=== PATIENT | male | born 1985 | race Caucasian/White ===

== ENCOUNTER 2017-03-20 21:13 | Emergency (ER) | payer OTHER, MEDICAID ==
[~2017-03-20] VITALS: Ht 152.4 cm; Wt 45.4 kg
[~2017-03-20 21:13] MED LIST: AMOX-520 PO; GUAI5SYR PO; METH20CP PO; METH40CP PO; SEVE400T PO
[2017-03-20 21:23] VITALS: BP_SYST 152
[2017-03-20 23:25] VITALS: BP_SYST 142
== END 2017-03-20 23:25 | disposition home or self-care (01) ==
LOC: SED 21:13
DX: S92.491A Other fracture of right great toe, initial encounter for closed fracture (principal); Z88.6 Allergy status to analgesic agent; Z79.2 Long term (current) use of antibiotics; Z79.899 Other long term (current) drug therapy; Z94.0 Kidney transplant status; W22.09XA Striking against other stationary object, initial encounter; Y93.89 Activity, other specified; Y92.89 Other specified places as the place of occurrence of the external cause; Y99.8 Other external cause status
CPT/HCPCS: 99284

== ENCOUNTER 2020-06-08 11:41 | Emergency (ER) | payer OTHER, MEDICAID ==
[~2020-06-08] VITALS: Ht 154.9 cm; Wt 43.1 kg
[2020-06-08 11:56] VITALS: BP_SYST 129
--- NOTE | 2020-06-08 12:55 | NUR ---
RECEIVED AND IN ROOM, ROSS TO ASSUME CARE
--- NOTE | 2020-06-08 12:58 | NUR ---
ALERT, CALM, RESP UNLABORED, SKIN WARM AND DRY. COMMUNICATES CLEARLY. NO DISTRESS C/O RT EAR DISTURBANCE. STATED HIS HEARING IS BETTER AND THAT SYMPTOMS HAVE RESOLVED
--- NOTE | 2020-06-08 12:58 | NUR ---
DR MÁRQUEZ IN TO ASSESS
[2020-06-08 13:29] VITALS: BP_SYST 125
--- NOTE | 2020-06-08 13:31 | NUR ---
Patient given written and verbal discharge instructions and verbalizes understanding. ER MD discussed with patient the results and treatment provided. Patient in stable condition. ID arm band removed. Patient educated on pain management and to follow up with PMD. Pain Scale 0 Opportunity for questions provided and answered. Medication side effect fact sheet provided.
== END 2020-06-08 13:31 | disposition home or self-care (01) ==
LOC: SED 11:41
DX: Z01.10 Encounter for examination of ears and hearing without abnormal findings (principal)
CPT/HCPCS: 99281

== ENCOUNTER 2022-08-24 08:16 | Inpatient (IN) | payer OTHER, MEDICAID ==
[~2022-08-24] VITALS: Ht 152.4 cm; Wt 44.9 kg
[2022-08-24 08:24] VITALS: BP_SYST 170
--- NOTE | 2022-08-24 08:30 | NUR ---
Patient to ER bed h2 to gown for evaluation. Side rails up. Report given to Sonja ARCE.
--- NOTE | 2022-08-24 08:31 | NUR ---
Pt came in from home c/o SOB after consuming too many sodas. Pt states he has h/o ESRD, curently receives Dialysis 4x per week. Pt has R fistula. hx of heart sx, facial sx and kidney sx. Denies f/v/d. Pt is anuric. Pt is calm and cooperative, in no acute distress at this time. Care to be provided as ordered.
--- NOTE | 2022-08-24 08:32 | NUR ---
ED MD Dr. Spivey at bedside examining patient.
[2022-08-24] MEDS ORDERED: IPRATROPIUM/ALBUTEROL SULFATE 3 ML AMPUL.NEB (DUONEB) INH ONE (08:45)
[2022-08-24 09:48] LABS: ANION GAP 8 (5-15); CALCIUM 9.7 mg/dL (8.4-11.0); CHLORIDE 101 mmol/L (98-107); GLUCOSE 83 mg/dL (70-99); UREA NITROGEN, BLOOD 45 mg/dL (8-21)
[2022-08-24 09:56] LABS: ALANINE AMINOTRANSFERASE 22 U/L (12-78); ALBUMIN 3.8 g/dL (3.4-4.8); ASPARTATE AMINOTRANSFERASE 22 U/L (10-37); LIPASE 159 U/L (73-393); TOTAL BILIRUBIN 0.7 mg/dL (0.0-1.0)
[2022-08-24 09:57] LABS: CREATININE 8.49 mg/dL (0.55-1.30); GFR AFRICAN AMERICAN 9 mL/min (>90)
[2022-08-24] MEDS ORDERED: INSULIN REGULAR, HUMAN 100 UNITS/ML, 3 ML VIAL IVP ONE (10:15)
[2022-08-24] MEDS ORDERED: DEXTROSE 50% JECT 50 ML DISP.SYRIN IVP ONE (10:15)
[2022-08-24] MEDS ORDERED: CALCIUM GLUCONATE 2 GM in NS 100 ML IV ONE (10:15)
[2022-08-24] MEDS ORDERED: ASPIRIN 325 MG TABLET PO ONE (10:15)
[2022-08-24 10:42] LABS: BASOPHILS # (AUTO) 0.1 K/uL (0.0-0.2); BASOPHILS % (AUTO) 1.1 % (0.0-2.0); EOSINOPHILS # (AUTO) 0.5 K/uL (0.0-0.4); EOSINOPHILS % (AUTO) 6.4 % (0.0-4.0); HEMATOCRIT 32.7 % (36-54); HEMOGLOBIN 10.8 g/dL (14.0-18.0); LYMPHOCYTES # (AUTO) 0.9 K/uL (1.0-5.5); LYMPHOCYTES % (AUTO) 10.7 % (20.5-51.5); MEAN CORPUSCULAR HEMOGLOBIN 30 pg (27-31); MEAN CORPUSCULAR HGB CONC 33 % (32-36); MEAN CORPUSCULAR VOLUME 91 fL (79.0-98.0); MONOCYTES # (AUTO) 0.5 K/uL (0.0-1.0); MONOCYTES % (AUTO) 5.4 % (1.7-9.3); NEUTROPHILS # (AUTO) 6.4 K/uL (1.8-7.7); NEUTROPHILS % (AUTO) 76.4 % (40.0-70.0); PLATELET COUNT (AUTO) 157 K/uL (130-430); WHITE BLOOD COUNT (AUTO) 8.4 K/uL (4.8-10.8)
[2022-08-24] MEDS ORDERED: CALCIUM GLUCONATE 1 GM/10 ML VIAL ONE (10:54)
[2022-08-24] MEDS ORDERED: INSULIN REGULAR, HUMAN 10 UNITS/0.1 ML, 3 ML VIAL ONE (10:55)
--- NOTE | 2022-08-24 12:10 | NUR ---
Admit bed requested Patient will be admitted to care of Dr. NAIDU. Admitted to TELE unit. Diagnosis ESRD, HYPERKALEMIA, ELEV TROP Inpatient (Yes or No) YES Observation (Yes or No) NO Orientation concerns or request close to nursing station (Yes or No) NO Covid Status PENDING On vent or bipap NO Isolation requirements NO Needs a sitter NO From Home (Yes or if No enter name of facility) YES Requires Dialysis (Yes or No) YES Med Rec Completed (Yes of No) YES
[2022-08-24 12:39] LABS: CHOLESTEROL 176 mg/dL (<200); HDL CHOLESTEROL 72 mg/dL (>45); LDL CHOLESTEROL 96 mg/dL (<100); TRIGLYCERIDES 44 mg/dL (30-150)
[2022-08-24] MEDS ORDERED: CALC667C4 PO (13:54)
[2022-08-24] MEDS ORDERED: METO10TA3 PO (13:54)
[2022-08-24] MEDS ORDERED: SEVE800T8 PO (13:54)
[2022-08-24] MEDS ORDERED: TRAZ-250 PO (13:54)
[2022-08-24] MEDS ORDERED: METO-542 PO (13:54)
[2022-08-24] MEDS ORDERED: PARO10TA75 PO (13:54)
[2022-08-24] MEDS ORDERED: HYDR-4038 PO (13:54)
[2022-08-24] MEDS ORDERED: AMLO10TA88 PO (13:54)
[2022-08-24] MEDS ORDERED: CEPH-548 PO (13:54)
--- NOTE | 2022-08-24 15:55 | NUR ---
ADMISSION NOTE Received patient from ER via gurney. Patient admitted with diagnosis of renal dysplasia. Patient is awake, alert, oriented X4. Denies pain, discomfort, or SOB. Patient oriented to hospital room, call light, toileting, pain management and safety-teach back done. Patient informed that Griffin and Therese will be his nurses and that their room number is 103-A. Personal belongings checked and Belongings List documented. Call light within reach. Safety precautions observed.
--- NOTE | 2022-08-24 16:28 | NUR ---
CONSULT PAGED DR CTA FOR CONSULT DX INCREASE TROPONIN SPOKE WITH WILSON
[2022-08-24] MEDS ORDERED: DOCUSATE SODIUM 100 MG CAPSULE PO ONE (17:00)
--- NOTE | 2022-08-24 17:30 | NUR ---
DIALYSIS START Hemodialysis at bedside. Dialysis nurse at bedside at this time.
--- NOTE | 2022-08-24 18:27 | NUR ---
CLOSING NOTE Patient in bed at this time. Alert, oriented, awake. He denies pain or discomfort at this time. Dialysis ongoing. organ grinder at bedside. Call light within reach. Safety precautions observed.
[2022-08-24 19:00] VITALS: BP_SYST 150
--- NOTE | 2022-08-24 19:15 | NUR ---
change of shift.pt.presents new admission.pt.presents hx;esrd w h/d.h/d therapy session in progress.h/d access location; rt.svc perma-cath.no c/o pain/nausea.pt.capable to reposition self/ambulate un-assisted.call light/telephone w/in access of the pt.
--- NOTE | 2022-08-24 19:21 | NUR ---
Added Notes: Hemodialysis still on going. Patient stable. Patient stated that he will eat his dinner after HD.
[2022-08-24 20:00] VITALS: BP_SYST 150
[2022-08-24] MEDS ORDERED: HEPARIN SODIUM, PORCINE 10,000 UNITS/ 10 ML VIAL MC ONE ×2 (20:00)
--- NOTE | 2022-08-24 20:00 | NUR ---
pt.assessed.hemo-dialysis therapy session in progress.v/s assessed values wnl.no c/o pain,nausea.pt.presents no distress. general status stable.respiratory status stable;un-labored.call light/telephone w/in access of the pt.
--- NOTE | 2022-08-24 20:30 | NUR ---
hemo-dialysis therapy session completed.pt.presents no distress.v/s values wnl.3litres exchanged.
--- NOTE | 2022-08-24 21:00 | NUR ---
2100p medication administered;colace.pt.capable to ingest the po medication w/out difficulty.pt.requested snack; trinity payne provided.call light/telephone w/in access of the pt.
[2022-08-24] MEDS: DOCUSATE SODIUM 100 MG CAPSULE PO SCH (21:10)
--- NOTE | 2022-08-24 22:00 | NUR ---
pt.assessed.pt.quiescent;somnolent.per flacc pain mgx pt.absent facial grimaces/body posturing.pt.capable to reposition self.call light/telephone w/in access of the pt.
[2022-08-25] VITALS: BP_SYST 148
--- NOTE | 2022-08-25 | NUR ---
pt.assessed.v/s assessed values note b/p status.no c/o pain,nausea.no requests posited@this hour.call light/telephone w/in access of the pt.
--- NOTE | 2022-08-25 02:00 | NUR ---
pt.assesed.quiescent.per flacc pain mgx pt.absent facial grimaces/body posturing.pt.capable to reposition self.call light/ telephone w/in access of the pt.
--- NOTE | 2022-08-25 04:00 | NUR ---
pt.assessed.pt.quiescent.per flacc pain mgx pt.absent facial grimaces/body posturing.pt.capable to reposition self. call light/telephone w/in access of the pt.
[2022-08-25] MEDS: NORMAL SALINE 5 ML DISP.SYRIN IVF SCH ×3 (05:25→21:16)
--- NOTE | 2022-08-25 05:27 | NUR ---
CONSULTATION PAGED/CALLED Reason for Consultation: RENAL FAILURE Person Who was Notified: PHYLLIS Consulting Physician: DR.BHASIN PENDLETON FOR [facility] Event Lighting Specialist Specialty: NEPHRO Ordering Physician: EVANGELISTA
--- NOTE | 2022-08-25 06:25 | NUR ---
pt.assessed.no c/o pain,nausea.pt.requested crackers;trinity provided.i have collected the mrsa swab;hemo-dialysis protocol.call light/telephone w/in access of the pt.
[2022-08-25] MEDS: DOCUSATE SODIUM 100 MG CAPSULE PO SCH ×2 (09:15→21:00)
[2022-08-25 11:03] LABS: BASOPHILS # (AUTO) 0.1 K/uL (0.0-0.2); BASOPHILS % (AUTO) 1.8 % (0.0-2.0); EOSINOPHILS # (AUTO) 0.4 K/uL (0.0-0.4); HEMATOCRIT 33.2 % (36-54); HEMOGLOBIN 11.2 g/dL (14.0-18.0); LYMPHOCYTES # (AUTO) 0.9 K/uL (1.0-5.5); LYMPHOCYTES % (AUTO) 13.1 % (20.5-51.5); MEAN CORPUSCULAR HEMOGLOBIN 30 pg (27-31); MEAN CORPUSCULAR HGB CONC 34 % (32-36); MEAN CORPUSCULAR VOLUME 89 fL (79.0-98.0); MONOCYTES # (AUTO) 0.6 K/uL (0.0-1.0); MONOCYTES % (AUTO) 8.3 % (1.7-9.3); NEUTROPHILS # (AUTO) 4.7 K/uL (1.8-7.7); NEUTROPHILS % (AUTO) 70.8 % (40.0-70.0); PLATELET COUNT (AUTO) 163 K/uL (130-430); RED BLOOD CELL COUNT(AUTO) 3.71 MIL/uL (4.2-6.2); RED CELL DISTRIBUTION WIDTH 14.8 % (9.0-15.0); WHITE BLOOD COUNT (AUTO) 6.7 K/uL (4.8-10.8)
[2022-08-25 11:25] VITALS: BP_SYST 151
[2022-08-25 11:29] LABS: ALBUMIN 3.7 g/dL (3.4-4.8); CALCIUM 8.9 mg/dL (8.4-11.0); CREATININE 7.24 mg/dL (0.55-1.30); TOTAL BILIRUBIN 0.8 mg/dL (0.0-1.0)
[2022-08-25 15:28] VITALS: BP_SYST 147
[2022-08-25 20:00] VITALS: BP_SYST 149
--- NOTE | 2022-08-25 23:42 | NUR ---
2000 OPENING NOTES: Patient received in bed AA&Ox4 able to make needs known, denies any pain or distress, Chest rise is even and unlabored, Patient assessed at this time and is stable at this time, safety measures are in place as per protocol, will resume care and continue to monitor throughout the shift. 2200 Patient received evening medications as indicated no s/s of distress, able to communicate needs, call light within reach. 2330 Patient is resting no s/s of distress is noted at this time. Will continue to monitor.
[2022-08-26 01:15] VITALS: BP_SYST 158
[2022-08-26] MEDS: NORMAL SALINE 5 ML DISP.SYRIN IVF SCH ×2 (06:26→14:32)
--- NOTE | 2022-08-26 06:46 | NUR ---
CLOSING NOTES: Patient is in bed resting no s/s of distress is noted at this time. Chest rise is even and unlabored on RA. Patient is able to verbalize needs and has call light within reach. New PIV was started on RFA 22G patent, flushes and is C/D/I. Patient is stable at this time, all current shift needs have been met and safety measures remain in place as per protocol. Will differ care to AM shift nurse for continuity of care.
--- NOTE | 2022-08-26 08:30 | NUR ---
ROUNDS LATE ENTRY DUE TO PATIENT CARE 0830-BLOOD PRESSURE EXTREMELY ELEVATE. DENIES CHST PAIN AT THIS TIME. DR CAT IS ROUNDING AND NOTIFIED HIM OF PT'S BP. PATIENT IS SCHEDULE FOR DIALYSIS TODAY 1030- HEMODIALYSIS STARTED JUST AFTER 10 AM. 1330-HD COMPLETED. DUE MEDICATION FOR HTN GIVEN 1530- BP 148/96
[2022-08-26 08:40] VITALS: BP_SYST 203
[2022-08-26] MEDS: DOCUSATE SODIUM 100 MG CAPSULE PO SCH (09:15)
[2022-08-26] MEDS ORDERED: PARoxetine HCL 20 MG TABLET PO ONE (10:00)
[2022-08-26] MEDS ORDERED: METOPROLOL SUCCINATE 50 MG TAB.SR.24H (TOPROL XL) PO ONE (10:00)
[2022-08-26] MEDS ORDERED: amLODIPine BESYLATE 10 MG TABLET PO ONE (10:00)
[2022-08-26 12:19] VITALS: BP_SYST 155
--- NOTE | 2022-08-26 12:38 | NUR ---
Dietitian Recommendations * Consider Renal standard diet for pt * MD to clarify fluid needs * Consider Nepro ONS once daily to add nutrition GS, MPH, RD Please refer to RD Assessment for further details Addendum: 08/26/22 at [address] Amended: Links added.
[2022-08-26] MEDS ORDERED: HEPARIN SODIUM,PORCINE 5,000 UNITS/ML VIAL MC ONE (12:45)
--- NOTE | 2022-08-26 13:13 | NUR ---
HIGH ALERT NOTE: Called Dr. Nichols identified within the medical roster to verify physician authenticity for one time heparin orders.
[2022-08-26] MEDS ORDERED: LACTULOSE 20 GM/30 ML UDC PO PRN (14:00)
[2022-08-26] MEDS ORDERED: hydrALAZINE HCL 25 MG TABLET PO SCH (14:00)
[2022-08-26 14:16] VITALS: BP_SYST 159
[2022-08-26] MEDS ORDERED: CALCIUM ACETATE 667 MG CAP PO SCH (15:00)
[2022-08-26] MEDS ORDERED: SEVELAMER CARBONATE 800 MG TABLET PO SCH (15:00)
[2022-08-26 15:45] VITALS: BP_SYST 148
[2022-08-26 15:56] VITALS: BP_SYST 148
--- NOTE | 2022-08-26 16:15 | NUR ---
D/C Patient Patient given medication reconciliation form and D/C instructions. Exit Care provided. Patient verbalized understanding. MD discussed with patient the results and treatment provided. Ambulatory with steady gait for discharge to home. Patient in stable condition, ID band removed. IV catheter removed, intact and dressing applied, no active bleeding. Rx of given. Patient educated on pain management. All belongings sent with patient.
[2022-08-26] MEDS ORDERED: traZODone HCL 50 MG TABLET (DESYREL) PO SCH (21:00)
[2022-08-27] MEDS ORDERED: METOPROLOL SUCCINATE 50 MG TAB.SR.24H (TOPROL XL) PO SCH (09:00)
[2022-08-27] MEDS ORDERED: PARoxetine HCL 20 MG TABLET PO SCH (09:00)
[2022-08-27] MEDS ORDERED: amLODIPine BESYLATE 10 MG TABLET PO SCH (09:00)
== END 2022-08-26 16:10 | disposition home or self-care (01) | DRG 640 ==
LOC: SED 08:16 → STU 12:00
PROVIDERS: ADMIT Internal Medicine; ATTEND Internal Medicine
PROC: 5A1D70Z Performance of Urinary Filtration, Intermittent, Less than 6 Hours Per Day (ICD-10-PCS; principal; 2022-08-24)
PROC: 5A1D70Z Performance of Urinary Filtration, Intermittent, Less than 6 Hours Per Day (ICD-10-PCS; 2022-08-26)
DX: E87.5 Hyperkalemia (principal); N18.6 End stage renal disease; I12.0 Hypertensive chronic kidney disease with stage 5 chronic kidney disease or end stage renal disease; I24.8 Other forms of acute ischemic heart disease; T86.12 Kidney transplant failure; Z94.0 Kidney transplant status; E87.70 Fluid overload, unspecified; Z20.822 Contact with and (suspected) exposure to COVID-19; Y83.8 Other surgical procedures as the cause of abnormal reaction of the patient, or of later complication, without mention of misadventure at the time of the procedure; Z99.2 Dependence on renal dialysis; Z79.899 Other long term (current) drug therapy; Z87.891 Personal history of nicotine dependence; Z91.119 Patient's noncompliance with dietary regimen due to unspecified reason
CPT/HCPCS: 36415; 71045; 80053; 80061; 83690; 83880; 84484; 85025; 87081; 90935; 93005; 93306; 94640; 96365; 96375; 99285; G0378; J0610; J1644; J1815

== ENCOUNTER 2024-05-15 20:26 | Inpatient (IN) | payer OTHER ==
[~2024-05-15] VITALS: Ht 152.4 cm; Wt 48.3 kg
[~2024-05-15 20:26] MED LIST changes: +AMLO10TA88 PO; -AMOX-520 PO; +CALC667C4 PO; +HYDR25TA86 PO; +METO-306 PO; +METO10TA3 PO; +PARO10TA75 PO; +SEVE800T8 PO; +TRAZ-250 PO
[2024-05-15 20:32] VITALS: BP_SYST 167; PULSE 81; RESP 20; TEMP 97.4; O2SAT 96
[2024-05-15 22:09] LABS: BASOPHILS # (AUTO) 0.1 K/uL (0.0-0.2); BASOPHILS % (AUTO) 0.7 % (0.0-2.0); EOSINOPHILS # (AUTO) 0.2 K/uL (0.0-0.4); EOSINOPHILS % (AUTO) 2.3 % (0.0-4.0); HEMATOCRIT 27.1 % (36-54); LYMPHOCYTES # (AUTO) 1.1 K/uL (1.0-5.5); LYMPHOCYTES % (AUTO) 10.2 % (20.5-51.5); MEAN CORPUSCULAR HEMOGLOBIN 27 pg (27-31); MEAN CORPUSCULAR HGB CONC 33 % (32-36); MEAN CORPUSCULAR VOLUME 84 fL (79.0-98.0); MONOCYTES # (AUTO) 0.8 K/uL (0.0-1.0); MONOCYTES % (AUTO) 7.9 % (1.7-9.3); NEUTROPHILS # (AUTO) 8.3 K/uL (1.8-7.7); NEUTROPHILS % (AUTO) 78.9 % (40.0-70.0); PLATELET COUNT (AUTO) 274 K/uL (130-430); RED BLOOD CELL COUNT(AUTO) 3.24 MIL/uL (4.2-6.2); RED CELL DISTRIBUTION WIDTH 18.5 % (9.0-15.0); WHITE BLOOD COUNT (AUTO) 10.5 K/uL (4.8-10.8)
[2024-05-15 22:10] LABS: HEMOGLOBIN 8.8 g/dL (14.0-18.0)
[2024-05-15 22:21] LABS: CALCIUM 9.8 mg/dL (8.4-11.0)
[2024-05-15 22:23] LABS: INR 1.2 (0.80-1.20); PROTHROMBIN TIME 12.7 SECS (9.5-12.5)
[2024-05-15 22:25] LABS: POTASSIUM 5.9 mmol/L (3.5-5.1)
[2024-05-15 22:26] LABS: CREATININE 10.17 mg/dL (0.55-1.30)
[2024-05-15] MEDS ORDERED: OMEP20CA15 PO ×2 (22:55→23:11)
[2024-05-15] MEDS ORDERED: POLY17PO4 PO (22:57)
[2024-05-15] MEDS: HYDROcodone/ACETAMIN 5-325 MG TAB (NORCO/ VICODIN) PO ONE (23:04)
[2024-05-15] MEDS ORDERED: FOLI0.8T42 PO (23:11)
[2024-05-15] MEDS ORDERED: TRAZ-250 PO (23:11)
[2024-05-15] MEDS ORDERED: BISA-140 PO (23:11)
[2024-05-16] VITALS (7 sets, daily range): BP systolic 146–191; PULSE 70–86; RESP 15–18; TEMP 97.6–98.8; O2SAT 94–97
[2024-05-16] MEDS ORDERED: HYDROcodone/ACETAMIN 5-325 MG TAB (NORCO/ VICODIN) PO PRN (00:30)
[2024-05-16] MEDS: SODIUM POLYSTYRENE SULFONATE 15 GM/60 ML UDBTL PO ONE (01:05)
[2024-05-16] MEDS: APIXABAN 2.5 MG TABLET PO SCH (01:33)
[2024-05-16] MEDS: cloNIDine HCL 0.1 MG TABLET PO PRN (02:02)
[2024-05-16] MEDS: ONDANSETRON HCL 4 MG/2 ML VIAL IVP PRN (03:03)
[2024-05-16] MEDS ORDERED: OMEPRAZOLE Non-Formulary 20 MG CAPSULE.DR PO SCH (09:45)
[2024-05-16] MEDS ORDERED: SEVELAMER HCL 400 MG PO SCH (11:30)
[2024-05-16] MEDS: CALCIUM ACETATE 667 MG CAP PO SCH (12:00)
[2024-05-16] MEDS: POLYETHYLENE GLYCOL 3350, 17 GM/ POWD.PACK PO ONE (12:46)
[2024-05-16] MEDS: HEPARIN SODIUM,PORCINE 5,000 UNITS/ML VIAL MC ONE (13:15)
[2024-05-16] MEDS: PARoxetine HCL 20 MG TABLET PO ONE (14:57)
[2024-05-16] MEDS: PANTOPRAZOLE SODIUM 40 MG TAB PO ONE (14:57)
[2024-05-16] MEDS: amLODIPine BESYLATE 10 MG TABLET PO ONE (14:58)
[2024-05-16] MEDS: SEVELAMER CARBONATE 800 MG TABLET PO SCH (17:18)
[2024-05-16] MEDS: HYDROcodone/ACETAMIN 10-325 MG TAB PO PRN (17:20)
[2024-05-16] MEDS: traZODone HCL 50 MG TABLET (DESYREL) PO SCH (20:14)
[2024-05-16] MEDS: BISACODYL 5 MG TABLET.DR (DULCOLAX) PO SCH (20:14)
[2024-05-16] MEDS ORDERED: traZODone HCL 50 MG TABLET (DESYREL) PO SCH (21:00)
[2024-05-17] VITALS: BP_SYST 143; PULSE 84; RESP 18; TEMP 97.7; O2SAT 94
[2024-05-17 06:33] LABS: BASOPHILS # (AUTO) 0.1 K/uL (0.0-0.2); BASOPHILS % (AUTO) 0.9 % (0.0-2.0); EOSINOPHILS # (AUTO) 0.3 K/uL (0.0-0.4); EOSINOPHILS % (AUTO) 3.4 % (0.0-4.0); HEMATOCRIT 26.4 % (36-54); HEMOGLOBIN 8.3 g/dL (14.0-18.0); LYMPHOCYTES # (AUTO) 1.3 K/uL (1.0-5.5); LYMPHOCYTES % (AUTO) 14.6 % (20.5-51.5); MEAN CORPUSCULAR HEMOGLOBIN 27 pg (27-31); MEAN CORPUSCULAR HGB CONC 32 % (32-36); MEAN CORPUSCULAR VOLUME 85 fL (79.0-98.0); MONOCYTES # (AUTO) 0.9 K/uL (0.0-1.0); MONOCYTES % (AUTO) 9.4 % (1.7-9.3); NEUTROPHILS # (AUTO) 6.6 K/uL (1.8-7.7); NEUTROPHILS % (AUTO) 71.7 % (40.0-70.0); PLATELET COUNT (AUTO) 296 K/uL (130-430); RED CELL DISTRIBUTION WIDTH 18.9 % (9.0-15.0); WHITE BLOOD COUNT (AUTO) 9.2 K/uL (4.8-10.8)
[2024-05-17 07:12] LABS: ALBUMIN 2.3 g/dL (3.4-4.8); CALCIUM 9.5 mg/dL (8.4-11.0); CREATININE 7.27 mg/dL (0.55-1.30); PHOSPHORUS 6.4 mg/dL (2.7-4.5); POTASSIUM 4.8 mmol/L (3.5-5.1); TOTAL BILIRUBIN 0.7 mg/dL (0.0-1.0); TOTAL PROTEIN, SERUM 7.3 g/dL (6.4-8.3)
[2024-05-17 07:52] VITALS: BP_SYST 146; PULSE 83; RESP 16; TEMP 98; O2SAT 92
[2024-05-17] MEDS: PANTOPRAZOLE SODIUM 40 MG TAB PO SCH (08:09)
[2024-05-17] MEDS: NEPHROVITE, (FOLIC ACID/VITAMIN B COMP W-C 1 TAB) PO SCH (08:09)
[2024-05-17] MEDS: PARoxetine HCL 20 MG TABLET PO SCH (08:10)
[2024-05-17] MEDS: amLODIPine BESYLATE 10 MG TABLET PO SCH (08:11)
[2024-05-17] MEDS: POLYETHYLENE GLYCOL 3350, 17 GM/ POWD.PACK PO SCH (08:11)
[2024-05-17 09:00] VITALS: O2SAT 93
[2024-05-17 12:04] VITALS: BP_SYST 150; PULSE 72; RESP 20; TEMP 97.6; O2SAT 95
[2024-05-17 16:00] VITALS: BP_SYST 144; PULSE 82; RESP 18; TEMP 98.4; O2SAT 96
[2024-05-17 20:00] VITALS: BP_SYST 158; PULSE 82; RESP 18; O2SAT 97
[2024-05-18] VITALS: BP_SYST 160; PULSE 79; RESP 18; TEMP 96.9; O2SAT 98
[2024-05-18 08:03] VITALS: BP_SYST 160; PULSE 79; RESP 18; TEMP 97.9; O2SAT 94
[2024-05-18] MEDS: HEPARIN SODIUM,PORCINE 5,000 UNITS/ML VIAL IV ONE (12:12)
[2024-05-18 13:26] VITALS: BP_SYST 159; PULSE 80; RESP 17; TEMP 97.6; O2SAT 97
[2024-05-18 16:52] VITALS: BP_SYST 146; PULSE 60; RESP 18; TEMP 97.8; O2SAT 96
[2024-05-18 20:00] VITALS: BP_SYST 156; PULSE 73; RESP 18; TEMP 98.8; O2SAT 93
[2024-05-19 08:00] VITALS: BP_SYST 177; PULSE 94; RESP 18; TEMP 98.6; O2SAT 98
[2024-05-19] MEDS ORDERED: BISACODYL 10 MG/SUPPOSITORY RC ONE (08:30)
[2024-05-19] MEDS: BISACODYL 10 MG/SUPPOSITORY RC PRN (09:51)
[2024-05-19 11:10] VITALS: BP_SYST 179; PULSE 92; RESP 20; TEMP 97.9; O2SAT 95
[2024-05-19 16:22] VITALS: BP_SYST 167; PULSE 103; RESP 20; TEMP 98.2; O2SAT 96
[2024-05-19 20:03] VITALS: BP_SYST 155; PULSE 87; RESP 20; TEMP 98.8; O2SAT 95
[2024-05-20 00:55] VITALS: BP_SYST 146; PULSE 73; RESP 19; TEMP 98.9; O2SAT 95
[2024-05-20 08:00] VITALS: BP_SYST 168; PULSE 83; RESP 18; TEMP 98.2; O2SAT 98
[2024-05-20] MEDS ORDERED: QUEtiapine FUMARATE 25 MG TABLET PO SCH (14:45)
[2024-05-20 15:10] LABS: BASOPHILS # (AUTO) 0.1 K/uL (0.0-0.2); BASOPHILS % (AUTO) 1.1 % (0.0-2.0); EOSINOPHILS # (AUTO) 0.1 K/uL (0.0-0.4); HEMATOCRIT 29.2 % (36-54); HEMOGLOBIN 9.2 g/dL (14.0-18.0); LYMPHOCYTES # (AUTO) 0.7 K/uL (1.0-5.5); LYMPHOCYTES % (AUTO) 5.1 % (20.5-51.5); MEAN CORPUSCULAR HEMOGLOBIN 26 pg (27-31); MEAN CORPUSCULAR HGB CONC 31 % (32-36); MEAN CORPUSCULAR VOLUME 83 fL (79.0-98.0); MONOCYTES # (AUTO) 0.9 K/uL (0.0-1.0); MONOCYTES % (AUTO) 6.8 % (1.7-9.3); NEUTROPHILS # (AUTO) 11.8 K/uL (1.8-7.7); PLATELET COUNT (AUTO) 299 K/uL (130-430); RED BLOOD CELL COUNT(AUTO) 3.53 MIL/uL (4.2-6.2); RED CELL DISTRIBUTION WIDTH 19.5 % (9.0-15.0); WHITE BLOOD COUNT (AUTO) 13.7 K/uL (4.8-10.8)
[2024-05-20] MEDS ORDERED: traMADol HCL HCL 50 MG TABLET (ULTRAM) PO ONE (15:15)
[2024-05-20 15:57] LABS: ALBUMIN 2.4 g/dL (3.4-4.8); CALCIUM 10.6 mg/dL (8.4-11.0); POTASSIUM 5.6 mmol/L (3.5-5.1); TOTAL BILIRUBIN 0.8 mg/dL (0.0-1.0); URIC ACID 8.4 mg/dL (2.4-7.0)
[2024-05-20 16:07] LABS: CREATININE 9.96 mg/dL (0.55-1.30)
[2024-05-20] MEDS: traMADol HCL HCL 50 MG TABLET (ULTRAM) PO PRN (16:32)
[2024-05-20] MEDS: COLCHICINE 0.6 MG TABLET PO ONE (18:49)
[2024-05-20 20:22] VITALS: BP_SYST 160; PULSE 94; RESP 18; TEMP 98; O2SAT 99
[2024-05-20] MEDS: QUEtiapine FUMARATE 25 MG TABLET PO SCH (21:00)
[2024-05-21 01:45] VITALS: BP_SYST 142; PULSE 90; RESP 18; TEMP 98.3; O2SAT 98
[2024-05-21 04:45] VITALS: BP_SYST 140; PULSE 84; RESP 18; TEMP 98; O2SAT 96
[2024-05-21] MEDS: ACETAMINOPHEN 325 MG TABLET PO PRN (05:53)
[2024-05-21 08:02] VITALS: BP_SYST 156; PULSE 90; RESP 18; TEMP 98.3; O2SAT 95
[2024-05-21 08:26] LABS: TOTAL IRON BIND. CAPACITY 99 ug/dL (250-450)
[2024-05-21] MEDS: COLCHICINE 0.6 MG TABLET PO SCH (08:29)
[2024-05-21 13:18] VITALS: BP_SYST 145; PULSE 100; RESP 19; TEMP 99.3; O2SAT 93
[2024-05-21 16:18] VITALS: BP_SYST 139; PULSE 96; RESP 18; TEMP 99.3; O2SAT 96
[2024-05-21] MEDS: cefTRIAXone 1 GM IVPB PREMIX 50 ML IV SCH (18:24)
[2024-05-21 20:00] VITALS: BP_SYST 150; PULSE 98; RESP 16; TEMP 98.9; O2SAT 95
[2024-05-22] VITALS: BP_SYST 145; PULSE 86; RESP 18; TEMP 98.4; O2SAT 96
[2024-05-22 06:40] LABS: CALCIUM 10.8 mg/dL (8.4-11.0)
[2024-05-22 06:59] LABS: POTASSIUM 5.8 mmol/L (3.5-5.1)
[2024-05-22 07:00] LABS: CREATININE 8.97 mg/dL (0.55-1.30)
[2024-05-22 07:51] VITALS: BP_SYST 150; PULSE 91; RESP 16; TEMP 98.3; O2SAT 96
[2024-05-22] MEDS: SODIUM POLYSTYRENE SULFONATE 15 GM/60 ML UDBTL PO ONE (11:06)
[2024-05-22 12:00] VITALS: BP_SYST 146; PULSE 92; RESP 18; TEMP 98; O2SAT 95
[2024-05-22 18:40] VITALS: BP_SYST 146; PULSE 100; RESP 18; TEMP 98.8; O2SAT 98
[2024-05-22 20:00] VITALS: BP_SYST 141; PULSE 93; RESP 18; TEMP 98.1
[2024-05-23] VITALS (7 sets, daily range): BP systolic 112–155; PULSE 88–104; RESP 15–18; TEMP 98.1–98.6; O2SAT 95–98
[2024-05-23 04:59] LABS: BASOPHILS % (AUTO) 0.4 % (0.0-2.0); EOSINOPHILS # (AUTO) 0.3 K/uL (0.0-0.4); EOSINOPHILS % (AUTO) 2.8 % (0.0-4.0); HEMOGLOBIN 7.5 g/dL (14.0-18.0); LYMPHOCYTES % (AUTO) 11.3 % (20.5-51.5); MEAN CORPUSCULAR HEMOGLOBIN 27 pg (27-31); MEAN CORPUSCULAR HGB CONC 33 % (32-36); MEAN CORPUSCULAR VOLUME 81 fL (79.0-98.0); MONOCYTES # (AUTO) 0.8 K/uL (0.0-1.0); MONOCYTES % (AUTO) 8.8 % (1.7-9.3); NEUTROPHILS # (AUTO) 6.9 K/uL (1.8-7.7); NEUTROPHILS % (AUTO) 76.7 % (40.0-70.0); PLATELET COUNT (AUTO) 260 K/uL (130-430); RED BLOOD CELL COUNT(AUTO) 2.83 MIL/uL (4.2-6.2); RED CELL DISTRIBUTION WIDTH 18.8 % (9.0-15.0)
[2024-05-23 05:36] LABS: CREATININE 11.01 mg/dL (0.55-1.30)
[2024-05-23] MEDS: HEPARIN SODIUM,PORCINE 5,000 UNITS/ML VIAL MC ONE (11:43)
[2024-05-23] MEDS: CEFEPIME 1 GM in D5W 50 ML IV SCH (16:48)
[2024-05-24] VITALS (7 sets, daily range): BP systolic 126–142; PULSE 82–101; RESP 15–18; TEMP 97–98.7; O2SAT 95–97
[2024-05-24 05:57] LABS: BASOPHILS # (AUTO) 0.2 K/uL (0.0-0.2); BASOPHILS % (AUTO) 1.9 % (0.0-2.0); EOSINOPHILS # (AUTO) 0.3 K/uL (0.0-0.4); EOSINOPHILS % (AUTO) 4.1 % (0.0-4.0); HEMATOCRIT 23.1 % (36-54); HEMOGLOBIN 7.4 g/dL (14.0-18.0); LYMPHOCYTES # (AUTO) 1.1 K/uL (1.0-5.5); LYMPHOCYTES % (AUTO) 13.5 % (20.5-51.5); MEAN CORPUSCULAR HEMOGLOBIN 26 pg (27-31); MEAN CORPUSCULAR HGB CONC 32 % (32-36); MEAN CORPUSCULAR VOLUME 82 fL (79.0-98.0); MONOCYTES # (AUTO) 0.9 K/uL (0.0-1.0); MONOCYTES % (AUTO) 11.3 % (1.7-9.3); NEUTROPHILS # (AUTO) 5.4 K/uL (1.8-7.7); NEUTROPHILS % (AUTO) 69.2 % (40.0-70.0); PLATELET COUNT (AUTO) 287 K/uL (130-430); RED BLOOD CELL COUNT(AUTO) 2.82 MIL/uL (4.2-6.2); RED CELL DISTRIBUTION WIDTH 19.2 % (9.0-15.0); WHITE BLOOD COUNT (AUTO) 7.8 K/uL (4.8-10.8)
[2024-05-24 08:16] LABS: INR 1.2 (0.80-1.20); PROTHROMBIN TIME 13.1 SECS (9.5-12.5)
[2024-05-24 13:36] LABS: BF APPEARANCE UNSPUN BLOODY (CLEAR); SOURCE/TYPE ,BODY FLUID SYNOVIAL
[2024-05-24 13:37] LABS: APPEARANCE,SPUN,BODY FLUID CLOUDY (CLEAR); BODY FLUID COLOR RED (LT YELLOW); BODY FLUID TOTAL VOLUME 45 mL; LYMPHOCYTES, BODY FLUID 4 %; MONOCYTES,BODY FLUID 4 %; NEUTROPHIL, BODY FLUID 92 %; RBC, BODY FLUID 26025 /uL
[2024-05-24 13:44] LABS: BODY FLUID SOURCE/ TYPE KNEE
[2024-05-24 13:45] LABS: WBC, BODY FLUID 8775 /uL
[2024-05-24] MEDS: HEPARIN SODIUM,PORCINE 5,000 UNITS/ML VIAL IVP ONE (13:51)
[2024-05-24] MEDS: HEPARIN SODIUM,PORCINE 5,000 UNITS/ML VIAL SUBCUT SCH (20:56)
[2024-05-25] VITALS: BP_SYST 133; PULSE 85; RESP 16; O2SAT 97
[2024-05-25 07:50] VITALS: O2SAT 96
[2024-05-25 12:25] VITALS: BP_SYST 138; PULSE 92; RESP 16; TEMP 98.7; O2SAT 97
[2024-05-25] MEDS: HYDROcodone/ACETAMIN 10-325 MG TAB PO PRN (14:43)
[2024-05-25 16:10] VITALS: BP_SYST 139; PULSE 84; RESP 18; TEMP 98.8; O2SAT 97
[2024-05-25 20:00] VITALS: BP_SYST 136; PULSE 76; RESP 20; TEMP 97.4; O2SAT 98
[2024-05-26] VITALS: BP_SYST 146; PULSE 83; RESP 18; TEMP 97.7; O2SAT 97
[2024-05-26 08:19] VITALS: BP_SYST 143; PULSE 96; RESP 17; TEMP 97; O2SAT 97
[2024-05-26 08:32] VITALS: O2SAT 97
[2024-05-26 09:25] LABS: BASOPHILS # (AUTO) 0.1 K/uL (0.0-0.2); BASOPHILS % (AUTO) 0.6 % (0.0-2.0); EOSINOPHILS # (AUTO) 0.3 K/uL (0.0-0.4); EOSINOPHILS % (AUTO) 4.2 % (0.0-4.0); HEMATOCRIT 24.4 % (36-54); HEMOGLOBIN 7.6 g/dL (14.0-18.0); LYMPHOCYTES # (AUTO) 1.1 K/uL (1.0-5.5); LYMPHOCYTES % (AUTO) 13.6 % (20.5-51.5); MEAN CORPUSCULAR HEMOGLOBIN 26 pg (27-31); MEAN CORPUSCULAR HGB CONC 31 % (32-36); MEAN CORPUSCULAR VOLUME 82 fL (79.0-98.0); MONOCYTES # (AUTO) 0.6 K/uL (0.0-1.0); MONOCYTES % (AUTO) 6.9 % (1.7-9.3); NEUTROPHILS # (AUTO) 6.1 K/uL (1.8-7.7); NEUTROPHILS % (AUTO) 74.7 % (40.0-70.0); PLATELET COUNT (AUTO) 333 K/uL (130-430); RED BLOOD CELL COUNT(AUTO) 2.97 MIL/uL (4.2-6.2); RED CELL DISTRIBUTION WIDTH 19.1 % (9.0-15.0); WHITE BLOOD COUNT (AUTO) 8.2 K/uL (4.8-10.8)
[2024-05-26 12:09] VITALS: BP_SYST 140; PULSE 84; RESP 19; TEMP 97.5; O2SAT 97
[2024-05-26] MEDS ORDERED: *HEPARIN PER PHARMACY XX ONE (20:15)
[2024-05-27 13:05] VITALS: BP_SYST 165; PULSE 86; RESP 16; TEMP 97.7; O2SAT 97
[2024-05-27 13:30] VITALS: O2SAT 95
[2024-05-27 15:02] VITALS: BP_SYST 163; PULSE 90; RESP 16; TEMP 98.1; O2SAT 96
[2024-05-27] MEDS ORDERED: HEPARIN SODIUM,PORCINE 5,000 UNITS/ML VIAL SUBCUT SCH (15:15)
[2024-05-27 15:52] LABS: BASOPHILS % (AUTO) 0.4 % (0.0-2.0); EOSINOPHILS # (AUTO) 0.3 K/uL (0.0-0.4); EOSINOPHILS % (AUTO) 3.2 % (0.0-4.0); HEMATOCRIT 24.3 % (36-54); HEMOGLOBIN 7.9 g/dL (14.0-18.0); LYMPHOCYTES # (AUTO) 0.9 K/uL (1.0-5.5); LYMPHOCYTES % (AUTO) 8.6 % (20.5-51.5); MEAN CORPUSCULAR HEMOGLOBIN 26 pg (27-31); MEAN CORPUSCULAR HGB CONC 32 % (32-36); MONOCYTES # (AUTO) 0.8 K/uL (0.0-1.0); NEUTROPHILS # (AUTO) 8.3 K/uL (1.8-7.7); NEUTROPHILS % (AUTO) 79.8 % (40.0-70.0); PLATELET COUNT (AUTO) 364 K/uL (130-430); RED BLOOD CELL COUNT(AUTO) 3.04 MIL/uL (4.2-6.2); RED CELL DISTRIBUTION WIDTH 18.4 % (9.0-15.0); WHITE BLOOD COUNT (AUTO) 10.3 K/uL (4.8-10.8)
[2024-05-27 15:55] LABS: MEAN CORPUSCULAR VOLUME 80 fL (79.0-98.0)
[2024-05-27 16:24] LABS: CALCIUM 10.2 mg/dL (8.4-11.0)
[2024-05-27 16:32] LABS: CREATININE 10.23 mg/dL (0.55-1.30); POTASSIUM 5.9 mmol/L (3.5-5.1)
[2024-05-27] MEDS: HEPARIN SODIUM,PORCINE 5,000 UNITS/ML VIAL IV ONE ×2 (18:40→18:50)
[2024-05-27 20:57] VITALS: BP_SYST 151; PULSE 96; RESP 20; TEMP 98.6; O2SAT 96
[2024-05-28] VITALS (7 sets, daily range): BP systolic 151–170; PULSE 78–111; RESP 14–18; TEMP 97.1–99; O2SAT 90–100
[2024-05-28 05:12] LABS: CALCIUM 9.6 mg/dL (8.4-11.0); CREATININE 6.29 mg/dL (0.55-1.30)
[2024-05-28] MEDS ORDERED: NS IRRIG SOLN 1000 ML IR ONE (10:00)
[2024-05-28] MEDS ORDERED: WATER FOR IRRIGATION,STERILE 1,000 ML IRRIG.SOLN IR ONE (10:00)
[2024-05-28] MEDS ORDERED: MIDAZOLAM HCL 2 MG/2 ML VIAL (VERSED) ONE (10:00)
[2024-05-28] MEDS ORDERED: NS 1000 ML IV.SOLN IV ONE (10:00)
[2024-05-28] MEDS ORDERED: PROPOFOL 200MG/ 20ML VIAL (DIPRIVAN) IV ONE (10:00)
[2024-05-28] MEDS ORDERED: TRANEXAMIC ACID 1,000 MG/10 ML VIAL ONE (10:00)
[2024-05-28] MEDS ORDERED: VANCOMYCIN HCL 1000 MG/VIAL IV ONE (10:00)
[2024-05-28] MEDS ORDERED: BUPIVACAINE /PF 0.25% 30 ML VIAL INJ ONE (10:00)
[2024-05-28] MEDS ORDERED: ONDANSETRON HCL 4 MG/2 ML VIAL ONE (10:00)
[2024-05-28] MEDS ORDERED: fentaNYL CITRATE/PF 100 MCG/2 ML AMP ONE (10:00)
[2024-05-28] MEDS ORDERED: METOCLOPRAMIDE HCL 10 MG/2 ML VIAL ONE (10:00)
[2024-05-28] MEDS ORDERED: SEVOFLURANE 15 MIN GAS INH ONE (10:00)
[2024-05-28] MEDS ORDERED: LIDOCAINE 1% 10 MG/ML, 20 ML MDV ONE (10:00)
[2024-05-28] MEDS: NACL 0.9% 1,000 ML IV SCH (11:00)
[2024-05-28] MEDS: LABETALOL HCL 20 MG/4 ML CARTRIDGE IVP PRN (12:37)
[2024-05-28] MEDS: LABETALOL HCL 20 MG/4 ML CARTRIDGE IVP ONE (12:39)
[2024-05-28] MEDS: HYDROmorphone 1 MG/ML INJ. CARTRIDGE IVP PRN (12:45)
[2024-05-28] MEDS: HYDROmorphone 1 MG/ML INJ. CARTRIDGE ONE (14:16)
[2024-05-29] VITALS (7 sets, daily range): BP systolic 133–159; PULSE 80–98; RESP 14–18; TEMP 97.7–98.6; O2SAT 92–100
[2024-05-29 05:46] LABS: BASOPHILS # (AUTO) 0.1 K/uL (0.0-0.2); BASOPHILS % (AUTO) 1.2 % (0.0-2.0); EOSINOPHILS # (AUTO) 0.4 K/uL (0.0-0.4); EOSINOPHILS % (AUTO) 4.8 % (0.0-4.0); HEMATOCRIT 22.3 % (36-54); LYMPHOCYTES # (AUTO) 0.9 K/uL (1.0-5.5); LYMPHOCYTES % (AUTO) 12.2 % (20.5-51.5); MEAN CORPUSCULAR HEMOGLOBIN 26 pg (27-31); MEAN CORPUSCULAR HGB CONC 31 % (32-36); MEAN CORPUSCULAR VOLUME 82 fL (79.0-98.0); MONOCYTES # (AUTO) 0.8 K/uL (0.0-1.0); MONOCYTES % (AUTO) 10.5 % (1.7-9.3); NEUTROPHILS # (AUTO) 5.5 K/uL (1.8-7.7); NEUTROPHILS % (AUTO) 71.3 % (40.0-70.0); PLATELET COUNT (AUTO) 339 K/uL (130-430); RED BLOOD CELL COUNT(AUTO) 2.71 MIL/uL (4.2-6.2); RED CELL DISTRIBUTION WIDTH 18.4 % (9.0-15.0); WHITE BLOOD COUNT (AUTO) 7.7 K/uL (4.8-10.8)
[2024-05-29 06:12] LABS: ALBUMIN 1.9 g/dL (3.4-4.8); CALCIUM 10.1 mg/dL (8.4-11.0); TOTAL BILIRUBIN 0.5 mg/dL (0.0-1.0); TOTAL PROTEIN, SERUM 7.1 g/dL (6.4-8.3)
[2024-05-29 07:10] LABS: CREATININE 8.45 mg/dL (0.55-1.30); POTASSIUM 5.9 mmol/L (3.5-5.1)
[2024-05-30] VITALS (7 sets, daily range): BP systolic 138–169; PULSE 83–89; RESP 14–19; TEMP 96.9–98.2; O2SAT 93–98
[2024-05-30 06:55] LABS: BASOPHILS % (AUTO) 0.7 % (0.0-2.0); EOSINOPHILS # (AUTO) 0.6 K/uL (0.0-0.4); EOSINOPHILS % (AUTO) 8.1 % (0.0-4.0); LYMPHOCYTES # (AUTO) 0.9 K/uL (1.0-5.5); LYMPHOCYTES % (AUTO) 12.7 % (20.5-51.5); MEAN CORPUSCULAR HEMOGLOBIN 26 pg (27-31); MEAN CORPUSCULAR HGB CONC 32 % (32-36); MEAN CORPUSCULAR VOLUME 81 fL (79.0-98.0); MONOCYTES # (AUTO) 0.5 K/uL (0.0-1.0); MONOCYTES % (AUTO) 7.4 % (1.7-9.3); NEUTROPHILS # (AUTO) 5.2 K/uL (1.8-7.7); NEUTROPHILS % (AUTO) 71.1 % (40.0-70.0); PLATELET COUNT (AUTO) 290 K/uL (130-430); RED BLOOD CELL COUNT(AUTO) 2.57 MIL/uL (4.2-6.2); WHITE BLOOD COUNT (AUTO) 7.3 K/uL (4.8-10.8)
[2024-05-30 09:04] LABS: HEMATOCRIT 20.9 % (36-54); HEMOGLOBIN 6.6 g/dL (14.0-18.0)
[2024-05-30] MEDS: APIXABAN 2.5 MG TABLET PO SCH (21:26)
[2024-05-31 05:55] LABS: BASOPHILS # (AUTO) 0.2 K/uL (0.0-0.2); BASOPHILS % (AUTO) 2.7 % (0.0-2.0); EOSINOPHILS # (AUTO) 0.7 K/uL (0.0-0.4); HEMATOCRIT 24.1 % (36-54); HEMOGLOBIN 7.8 g/dL (14.0-18.0); LYMPHOCYTES # (AUTO) 0.8 K/uL (1.0-5.5); LYMPHOCYTES % (AUTO) 10.3 % (20.5-51.5); MEAN CORPUSCULAR HEMOGLOBIN 26 pg (27-31); MEAN CORPUSCULAR HGB CONC 32 % (32-36); MEAN CORPUSCULAR VOLUME 80 fL (79.0-98.0); MONOCYTES # (AUTO) 0.6 K/uL (0.0-1.0); MONOCYTES % (AUTO) 6.8 % (1.7-9.3); NEUTROPHILS # (AUTO) 5.9 K/uL (1.8-7.7); NEUTROPHILS % (AUTO) 72.2 % (40.0-70.0); PLATELET COUNT (AUTO) 367 K/uL (130-430); RED BLOOD CELL COUNT(AUTO) 3.02 MIL/uL (4.2-6.2); RED CELL DISTRIBUTION WIDTH 18.4 % (9.0-15.0); WHITE BLOOD COUNT (AUTO) 8.2 K/uL (4.8-10.8)
[2024-05-31 06:11] LABS: ALBUMIN 2.1 g/dL (3.4-4.8); CALCIUM 9.9 mg/dL (8.4-11.0); CREATININE 6.44 mg/dL (0.55-1.30); POTASSIUM 4.8 mmol/L (3.5-5.1); TOTAL BILIRUBIN 0.6 mg/dL (0.0-1.0); TOTAL PROTEIN, SERUM 7.5 g/dL (6.4-8.3)
[2024-05-31 08:45] VITALS: O2SAT 98
[2024-05-31 11:11] VITALS: BP_SYST 176; PULSE 87; RESP 16; TEMP 97.4; O2SAT 96
[2024-05-31 15:02] VITALS: BP_SYST 151; PULSE 89; RESP 16; TEMP 97; O2SAT 96
[2024-05-31 20:02] VITALS: BP_SYST 160; PULSE 78; RESP 16; TEMP 97.4; O2SAT 98
[2024-06-01] VITALS (7 sets, daily range): BP systolic 146–209; PULSE 73–83; RESP 16–20; TEMP 97.5–98.2; O2SAT 93–98
[2024-06-01 07:12] LABS: BASOPHILS # (AUTO) 0.1 K/uL (0.0-0.2); BASOPHILS % (AUTO) 1.4 % (0.0-2.0); EOSINOPHILS # (AUTO) 0.7 K/uL (0.0-0.4); EOSINOPHILS % (AUTO) 8.6 % (0.0-4.0); HEMATOCRIT 24.7 % (36-54); HEMOGLOBIN 7.8 g/dL (14.0-18.0); LYMPHOCYTES % (AUTO) 13.3 % (20.5-51.5); MEAN CORPUSCULAR HEMOGLOBIN 26 pg (27-31); MEAN CORPUSCULAR HGB CONC 32 % (32-36); MEAN CORPUSCULAR VOLUME 81 fL (79.0-98.0); MONOCYTES # (AUTO) 0.5 K/uL (0.0-1.0); MONOCYTES % (AUTO) 6.5 % (1.7-9.3); NEUTROPHILS # (AUTO) 5.5 K/uL (1.8-7.7); NEUTROPHILS % (AUTO) 70.2 % (40.0-70.0); PLATELET COUNT (AUTO) 360 K/uL (130-430); RED BLOOD CELL COUNT(AUTO) 3.05 MIL/uL (4.2-6.2); RED CELL DISTRIBUTION WIDTH 18.9 % (9.0-15.0); WHITE BLOOD COUNT (AUTO) 7.8 K/uL (4.8-10.8)
[2024-06-01 07:33] LABS: ALBUMIN 2.3 g/dL (3.4-4.8); CALCIUM 10.3 mg/dL (8.4-11.0); TOTAL BILIRUBIN 0.5 mg/dL (0.0-1.0); TOTAL PROTEIN, SERUM 7.9 g/dL (6.4-8.3)
[2024-06-01 08:31] LABS: CREATININE 8.81 mg/dL (0.55-1.30); POTASSIUM 5.9 mmol/L (3.5-5.1)
[2024-06-01] MEDS: HEPARIN SODIUM, PORCINE 10,000 UNITS/ 10 ML VIAL MC ONE ×2 (11:30→13:08)
[2024-06-01] MEDS: HEPARIN SODIUM,PORCINE 5,000 UNITS/ML VIAL MC ONE (13:08)
[2024-06-01] MEDS: CIPROFLOXACIN HCL 500 MG TABLET PO ONE (19:28)
[2024-06-02 01:20] VITALS: BP_SYST 173; PULSE 90; RESP 18; TEMP 98.4
[2024-06-02 07:03] LABS: BASOPHILS # (AUTO) 0.2 K/uL (0.0-0.2); BASOPHILS % (AUTO) 2.9 % (0.0-2.0); EOSINOPHILS # (AUTO) 0.6 K/uL (0.0-0.4); EOSINOPHILS % (AUTO) 7.9 % (0.0-4.0); HEMATOCRIT 24.3 % (36-54); HEMOGLOBIN 7.6 g/dL (14.0-18.0); LYMPHOCYTES # (AUTO) 1.1 K/uL (1.0-5.5); LYMPHOCYTES % (AUTO) 13.5 % (20.5-51.5); MEAN CORPUSCULAR HEMOGLOBIN 25 pg (27-31); MEAN CORPUSCULAR HGB CONC 31 % (32-36); MEAN CORPUSCULAR VOLUME 81 fL (79.0-98.0); MONOCYTES # (AUTO) 0.6 K/uL (0.0-1.0); MONOCYTES % (AUTO) 8.1 % (1.7-9.3); NEUTROPHILS # (AUTO) 5.3 K/uL (1.8-7.7); NEUTROPHILS % (AUTO) 67.6 % (40.0-70.0); PLATELET COUNT (AUTO) 329 K/uL (130-430); RED BLOOD CELL COUNT(AUTO) 3.02 MIL/uL (4.2-6.2); RED CELL DISTRIBUTION WIDTH 18.6 % (9.0-15.0); WHITE BLOOD COUNT (AUTO) 7.8 K/uL (4.8-10.8)
[2024-06-02 07:16] LABS: CALCIUM 10.4 mg/dL (8.4-11.0); CREATININE 6.97 mg/dL (0.55-1.30); POTASSIUM 5.3 mmol/L (3.5-5.1)
[2024-06-02 08:00] VITALS: BP_SYST 181; PULSE 85; RESP 15; TEMP 97.7
[2024-06-02] MEDS: SODIUM POLYSTYRENE SULFONATE 15 GM/60 ML UDBTL PO ONE (09:28)
[2024-06-02 12:24] VITALS: BP_SYST 169; PULSE 87; RESP 19; TEMP 99.2; O2SAT 95
[2024-06-02] MEDS: HEPARIN SODIUM,PORCINE 5,000 UNITS/ML VIAL MC ONE (14:21)
[2024-06-02 16:05] VITALS: BP_SYST 158; PULSE 101; RESP 19; TEMP 98.4; O2SAT 98
[2024-06-02] MEDS: CIPROFLOXACIN HCL 500 MG TABLET PO SCH (18:09)
[2024-06-02 20:00] VITALS: BP_SYST 172; PULSE 80; RESP 18; TEMP 97.8; O2SAT 97
[2024-06-03] VITALS (7 sets, daily range): BP systolic 147–175; PULSE 60–89; RESP 16–19; TEMP 97.6–98.2; O2SAT 96–97
[2024-06-03 10:31] LABS: ALBUMIN 2.1 g/dL (3.4-4.8); CALCIUM 9.9 mg/dL (8.4-11.0); CREATININE 5.72 mg/dL (0.55-1.30); POTASSIUM 4.5 mmol/L (3.5-5.1); TOTAL BILIRUBIN 0.5 mg/dL (0.0-1.0); TOTAL PROTEIN, SERUM 7.4 g/dL (6.4-8.3)
[2024-06-04] VITALS (8 sets, daily range): BP systolic 107–191; PULSE 66–79; RESP 16–18; TEMP 97.2–98.1; O2SAT 97–99
[2024-06-04 06:42] LABS: BASOPHILS # (AUTO) 0.1 K/uL (0.0-0.2); BASOPHILS % (AUTO) 1.4 % (0.0-2.0); EOSINOPHILS # (AUTO) 0.7 K/uL (0.0-0.4); EOSINOPHILS % (AUTO) 9.1 % (0.0-4.0); HEMATOCRIT 22.9 % (36-54); HEMOGLOBIN 7.3 g/dL (14.0-18.0); LYMPHOCYTES # (AUTO) 1.1 K/uL (1.0-5.5); LYMPHOCYTES % (AUTO) 14.4 % (20.5-51.5); MEAN CORPUSCULAR HEMOGLOBIN 26 pg (27-31); MEAN CORPUSCULAR HGB CONC 32 % (32-36); MEAN CORPUSCULAR VOLUME 82 fL (79.0-98.0); MONOCYTES # (AUTO) 0.6 K/uL (0.0-1.0); MONOCYTES % (AUTO) 8.2 % (1.7-9.3); NEUTROPHILS # (AUTO) 4.9 K/uL (1.8-7.7); NEUTROPHILS % (AUTO) 66.9 % (40.0-70.0); PLATELET COUNT (AUTO) 266 K/uL (130-430); RED BLOOD CELL COUNT(AUTO) 2.81 MIL/uL (4.2-6.2); RED CELL DISTRIBUTION WIDTH 18.9 % (9.0-15.0); WHITE BLOOD COUNT (AUTO) 7.3 K/uL (4.8-10.8)
[2024-06-04] MEDS: hydrALAZINE HCL 25 MG TABLET PO SCH (22:32)
[2024-06-05] VITALS (7 sets, daily range): BP systolic 150–190; PULSE 67–75; RESP 16–18; TEMP 97.8–98.3; O2SAT 96–98
[2024-06-05 08:07] LABS: BASOPHILS # (AUTO) 0.1 K/uL (0.0-0.2); BASOPHILS % (AUTO) 1.4 % (0.0-2.0); EOSINOPHILS # (AUTO) 0.7 K/uL (0.0-0.4); EOSINOPHILS % (AUTO) 8.7 % (0.0-4.0); HEMATOCRIT 22.8 % (36-54); HEMOGLOBIN 7.4 g/dL (14.0-18.0); LYMPHOCYTES % (AUTO) 12.8 % (20.5-51.5); MEAN CORPUSCULAR HEMOGLOBIN 26 pg (27-31); MEAN CORPUSCULAR HGB CONC 33 % (32-36); MEAN CORPUSCULAR VOLUME 81 fL (79.0-98.0); MONOCYTES # (AUTO) 0.6 K/uL (0.0-1.0); MONOCYTES % (AUTO) 7.5 % (1.7-9.3); NEUTROPHILS # (AUTO) 5.2 K/uL (1.8-7.7); NEUTROPHILS % (AUTO) 69.6 % (40.0-70.0); PLATELET COUNT (AUTO) 242 K/uL (130-430); RED CELL DISTRIBUTION WIDTH 19.7 % (9.0-15.0); WHITE BLOOD COUNT (AUTO) 7.5 K/uL (4.8-10.8)
[2024-06-05 08:30] LABS: ALBUMIN 2.3 g/dL (3.4-4.8); CALCIUM 10.6 mg/dL (8.4-11.0); TOTAL BILIRUBIN 0.6 mg/dL (0.0-1.0); TOTAL PROTEIN, SERUM 7.8 g/dL (6.4-8.3)
[2024-06-05 09:08] LABS: POTASSIUM 5.8 mmol/L (3.5-5.1)
[2024-06-05 09:09] LABS: CREATININE 9.24 mg/dL (0.55-1.30)
[2024-06-05] MEDS: HEPARIN SODIUM,PORCINE 5,000 UNITS/ML VIAL IVP ONE (19:05)
[2024-06-06] VITALS (7 sets, daily range): BP systolic 138–160; PULSE 71–78; RESP 16–17; TEMP 97.6–97.8; O2SAT 95–98
[2024-06-06 10:08] LABS: CREATININE 6.62 mg/dL (0.55-1.30); POTASSIUM 3.9 mmol/L (3.5-5.1)
[2024-06-06] MEDS: HEPARIN SODIUM,PORCINE 5,000 UNITS/ML VIAL SUBCUT SCH (21:44)
[2024-06-07] VITALS (7 sets, daily range): BP systolic 154–193; PULSE 75–81; RESP 15–18; TEMP 98.1–99; O2SAT 97–99
[2024-06-07] MEDS: EPOETIN ALFA-EPBX 4,000 UNITS/ML VIAL SUBCUT SCH (01:32)
[2024-06-07 08:06] LABS: BASOPHILS # (AUTO) 0.1 K/uL (0.0-0.2); BASOPHILS % (AUTO) 1.7 % (0.0-2.0); EOSINOPHILS # (AUTO) 0.6 K/uL (0.0-0.4); EOSINOPHILS % (AUTO) 8.5 % (0.0-4.0); HEMOGLOBIN 8.5 g/dL (14.0-18.0); LYMPHOCYTES # (AUTO) 1.2 K/uL (1.0-5.5); LYMPHOCYTES % (AUTO) 16.7 % (20.5-51.5); MEAN CORPUSCULAR HEMOGLOBIN 27 pg (27-31); MEAN CORPUSCULAR HGB CONC 33 % (32-36); MEAN CORPUSCULAR VOLUME 82 fL (79.0-98.0); MONOCYTES # (AUTO) 0.6 K/uL (0.0-1.0); NEUTROPHILS # (AUTO) 4.4 K/uL (1.8-7.7); NEUTROPHILS % (AUTO) 64.1 % (40.0-70.0); PLATELET COUNT (AUTO) 227 K/uL (130-430); RED BLOOD CELL COUNT(AUTO) 3.16 MIL/uL (4.2-6.2); RED CELL DISTRIBUTION WIDTH 18.8 % (9.0-15.0); WHITE BLOOD COUNT (AUTO) 6.9 K/uL (4.8-10.8)
[2024-06-07] MEDS: HEPARIN SODIUM,PORCINE 5,000 UNITS/ML VIAL MC ONE (13:38)
[2024-06-08 00:50] VITALS: BP_SYST 166; PULSE 77; RESP 18; TEMP 97.5; O2SAT 95
[2024-06-08 08:45] VITALS: BP_SYST 207; PULSE 86; RESP 16; TEMP 98.3; O2SAT 98
[2024-06-08 11:23] VITALS: BP_SYST 171; PULSE 83; RESP 18; TEMP 99.1; O2SAT 98
[2024-06-08 12:22] VITALS: BP_SYST 173; PULSE 86
[2024-06-08 16:09] VITALS: BP_SYST 165; PULSE 80; RESP 18; TEMP 99; O2SAT 98
[2024-06-08 20:00] VITALS: BP_SYST 163; PULSE 79; RESP 18; TEMP 98.3; O2SAT 97
[2024-06-09 00:38] VITALS: BP_SYST 163; PULSE 85; RESP 16; TEMP 98.6; O2SAT 98
[2024-06-09] MEDS: hydrALAZINE HCL 25 MG TABLET PO ONE (02:01)
[2024-06-09] MEDS: hydrALAZINE HCL 25 MG TABLET PO SCH (06:12)
[2024-06-09 07:30] LABS: ALBUMIN 2.4 g/dL (3.4-4.8); CALCIUM 10.3 mg/dL (8.4-11.0); POTASSIUM 4.2 mmol/L (3.5-5.1); TOTAL BILIRUBIN 0.5 mg/dL (0.0-1.0); TOTAL PROTEIN, SERUM 7.6 g/dL (6.4-8.3)
[2024-06-09 07:34] LABS: CREATININE 9.05 mg/dL (0.55-1.30)
[2024-06-09 07:45] LABS: INR 1.2 (0.80-1.20); PROTHROMBIN TIME 13.1 SECS (9.5-12.5)
[2024-06-09 08:04] LABS: BASOPHILS # (AUTO) 0.1 K/uL (0.0-0.2); BASOPHILS % (AUTO) 1.7 % (0.0-2.0); EOSINOPHILS # (AUTO) 0.6 K/uL (0.0-0.4); EOSINOPHILS % (AUTO) 8.9 % (0.0-4.0); HEMATOCRIT 25.7 % (36-54); HEMOGLOBIN 8.3 g/dL (14.0-18.0); LYMPHOCYTES # (AUTO) 1.4 K/uL (1.0-5.5); LYMPHOCYTES % (AUTO) 19.3 % (20.5-51.5); MEAN CORPUSCULAR HEMOGLOBIN 27 pg (27-31); MEAN CORPUSCULAR HGB CONC 32 % (32-36); MEAN CORPUSCULAR VOLUME 84 fL (79.0-98.0); MONOCYTES # (AUTO) 0.8 K/uL (0.0-1.0); MONOCYTES % (AUTO) 11.6 % (1.7-9.3); NEUTROPHILS # (AUTO) 4.2 K/uL (1.8-7.7); NEUTROPHILS % (AUTO) 58.5 % (40.0-70.0); PLATELET COUNT (AUTO) 215 K/uL (130-430); RED BLOOD CELL COUNT(AUTO) 3.07 MIL/uL (4.2-6.2); RED CELL DISTRIBUTION WIDTH 19.5 % (9.0-15.0); WHITE BLOOD COUNT (AUTO) 7.1 K/uL (4.8-10.8)
[2024-06-09 08:20] VITALS: BP_SYST 141; PULSE 78; RESP 15; TEMP 97.6; O2SAT 100
[2024-06-09] MEDS: HEPARIN SODIUM,PORCINE 5,000 UNITS/ML VIAL SUBCUT ONE (08:30)
[2024-06-09 08:45] VITALS: O2SAT 100
[2024-06-09 11:25] VITALS: BP_SYST 148; PULSE 80; RESP 16; TEMP 97.7; O2SAT 99
[2024-06-09] MEDS ORDERED: PROPOFOL 200MG/ 20ML VIAL (DIPRIVAN) IV ONE (14:02)
[2024-06-09] MEDS ORDERED: NS IRRIG SOLN 1000 ML IR ONE (14:02)
[2024-06-09] MEDS ORDERED: SEVOFLURANE 15 MIN GAS INH ONE (14:02)
[2024-06-09] MEDS ORDERED: BUPIVACAINE /PF 0.25% 30 ML VIAL INJ ONE (14:02)
[2024-06-09] MEDS ORDERED: D5W 250 ML IV.SOLN IV ONE (14:02)
[2024-06-09] MEDS ORDERED: ceFAZolin SODIUM 1 GM VIAL ONE (14:02)
[2024-06-09] MEDS ORDERED: WATER FOR IRRIGATION,STERILE 1,000 ML IRRIG.SOLN IR ONE (14:02)
[2024-06-09] MEDS ORDERED: ONDANSETRON HCL 4 MG/2 ML VIAL IVP PRN ×2 (14:45→15:30)
[2024-06-09] MEDS ORDERED: NALOXONE HCL 0.4 MG/ML AMP (NARCAN) IVP PRN (14:45)
[2024-06-09] MEDS ORDERED: HYDROmorphone 1 MG/ML INJ. CARTRIDGE IVP PRN (14:45)
[2024-06-09] MEDS ORDERED: KETOROLAC TROMETHAMINE 30 MG VIAL IVP PRN (14:45)
[2024-06-09] MEDS ORDERED: MORPHINE 2 MG/ML INJ. SYRINGE IVP PRN (15:30)
[2024-06-09 20:00] VITALS: BP_SYST 168; PULSE 88; RESP 18; TEMP 97.3; O2SAT 96
[2024-06-10 00:20] VITALS: BP_SYST 159; PULSE 87; RESP 16; TEMP 98.8; O2SAT 99
[2024-06-10] MEDS: HYDROcodone/ACETAMIN 5-325 MG TAB (NORCO/ VICODIN) PO PRN (05:59)
[2024-06-10 06:25] LABS: BASOPHILS # (AUTO) 0.2 K/uL (0.0-0.2); BASOPHILS % (AUTO) 1.6 % (0.0-2.0); EOSINOPHILS % (AUTO) 9.7 % (0.0-4.0); HEMATOCRIT 24.8 % (36-54); LYMPHOCYTES # (AUTO) 1.2 K/uL (1.0-5.5); LYMPHOCYTES % (AUTO) 11.6 % (20.5-51.5); MEAN CORPUSCULAR HEMOGLOBIN 27 pg (27-31); MEAN CORPUSCULAR HGB CONC 32 % (32-36); MEAN CORPUSCULAR VOLUME 84 fL (79.0-98.0); MONOCYTES # (AUTO) 0.9 K/uL (0.0-1.0); MONOCYTES % (AUTO) 8.9 % (1.7-9.3); NEUTROPHILS # (AUTO) 6.8 K/uL (1.8-7.7); NEUTROPHILS % (AUTO) 68.2 % (40.0-70.0); PLATELET COUNT (AUTO) 240 K/uL (130-430); RED BLOOD CELL COUNT(AUTO) 2.95 MIL/uL (4.2-6.2); RED CELL DISTRIBUTION WIDTH 20.1 % (9.0-15.0); WHITE BLOOD COUNT (AUTO) 9.9 K/uL (4.8-10.8)
[2024-06-10 06:50] LABS: ALBUMIN 2.5 g/dL (3.4-4.8); CALCIUM 10.1 mg/dL (8.4-11.0); CREATININE 6.46 mg/dL (0.55-1.30); POTASSIUM 4.5 mmol/L (3.5-5.1); TOTAL BILIRUBIN 0.4 mg/dL (0.0-1.0); TOTAL PROTEIN, SERUM 7.9 g/dL (6.4-8.3)
[2024-06-10 07:45] VITALS: BP_SYST 163; PULSE 98; RESP 17; TEMP 97.5; O2SAT 99
[2024-06-10 09:30] VITALS: O2SAT 99
[2024-06-10] MEDS: APIXABAN 2.5 MG TABLET PO ONE (10:53)
[2024-06-10 12:31] VITALS: BP_SYST 177; PULSE 85; RESP 16; TEMP 98.4; O2SAT 100
[2024-06-10] MEDS: VANCOMYCIN HCL 500 MG in NS 100 ML IV SCH (14:51)
[2024-06-10 15:22] VITALS: BP_SYST 139; PULSE 82; RESP 15; TEMP 97.8; O2SAT 100
[2024-06-10 17:03] VITALS: BP_SYST 181; PULSE 87; RESP 16; TEMP 98.2; O2SAT 100
[2024-06-10] MEDS ORDERED: APIXABAN 2.5 MG TABLET PO SCH (21:00)
== END 2024-06-10 18:40 | DRG 264 ==
LOC: SED 20:26 → STU 05-16 00:18 → SMU 05-18 13:27
PROVIDERS: ADMIT Internal Medicine; ATTEND Internal Medicine
PROC: 5A1D70Z Performance of Urinary Filtration, Intermittent, Less than 6 Hours Per Day (ICD-10-PCS; 2024-05-16)
PROC: 5A1D70Z Performance of Urinary Filtration, Intermittent, Less than 6 Hours Per Day (ICD-10-PCS; 2024-05-18)
PROC: 5A1D70Z Performance of Urinary Filtration, Intermittent, Less than 6 Hours Per Day (ICD-10-PCS; 2024-05-20)
PROC: 5A1D70Z Performance of Urinary Filtration, Intermittent, Less than 6 Hours Per Day (ICD-10-PCS; 2024-05-23)
PROC: 5A1D70Z Performance of Urinary Filtration, Intermittent, Less than 6 Hours Per Day (ICD-10-PCS; 2024-05-24)
PROC: 06H03DZ Insertion of Intraluminal Device into Inferior Vena Cava, Percutaneous Approach (ICD-10-PCS; 2024-05-26)
PROC: 5A1D70Z Performance of Urinary Filtration, Intermittent, Less than 6 Hours Per Day (ICD-10-PCS; 2024-05-27)
PROC: 0MD Bursae and Ligaments, Extraction (ICD-10-PCS; 2024-05-28)
PROC: 0MDN4ZZ Extraction of Right Knee Bursa and Ligament, Percutaneous Endoscopic Approach (ICD-10-PCS; 2024-05-28)
PROC: 0S9 Lower Joints, Drainage (ICD-10-PCS; 2024-05-28)
PROC: 30233N1 Transfusion of Nonautologous Red Blood Cells into Peripheral Vein, Percutaneous Approach (ICD-10-PCS; principal; 2024-05-29)
PROC: 5A1D70Z Performance of Urinary Filtration, Intermittent, Less than 6 Hours Per Day (ICD-10-PCS; 2024-05-30)
PROC: 5A1D70Z Performance of Urinary Filtration, Intermittent, Less than 6 Hours Per Day (ICD-10-PCS; 2024-06-01)
PROC: 5A1D70Z Performance of Urinary Filtration, Intermittent, Less than 6 Hours Per Day (ICD-10-PCS; 2024-06-02)
PROC: 5A1D70Z Performance of Urinary Filtration, Intermittent, Less than 6 Hours Per Day (ICD-10-PCS; 2024-06-05)
PROC: 5A1D70Z Performance of Urinary Filtration, Intermittent, Less than 6 Hours Per Day (ICD-10-PCS; 2024-06-07)
PROC: 03PY0JZ Removal of Synthetic Substitute from Upper Artery, Open Approach (ICD-10-PCS; 2024-06-09)
PROC: 0X990ZZ Drainage of Left Upper Arm, Open Approach (ICD-10-PCS; 2024-06-09)
DX: I82.401 Acute embolism and thrombosis of unspecified deep veins of right lower extremity (principal); E43 Unspecified severe protein-calorie malnutrition; N18.6 End stage renal disease; M00.861 Arthritis due to other bacteria, right knee; M00.871 Arthritis due to other bacteria, right ankle and foot; I12.0 Hypertensive chronic kidney disease with stage 5 chronic kidney disease or end stage renal disease; L03.115 Cellulitis of right lower limb; L02.414 Cutaneous abscess of left upper limb; Z68.1 Body mass index [BMI] 19.9 or less, adult; T82.868A Thrombosis due to vascular prosthetic devices, implants and grafts, initial encounter; I82.411 Acute embolism and thrombosis of right femoral vein; D63.1 Anemia in chronic kidney disease; Z20.822 Contact with and (suspected) exposure to COVID-19; F90.9 Attention-deficit hyperactivity disorder, unspecified type; F32.A Depression, unspecified; E87.5 Hyperkalemia; Y83.2 Surgical operation with anastomosis, bypass or graft as the cause of abnormal reaction of the patient, or of later complication, without mention of misadventure at the time of the procedure; B96.5 Pseudomonas (aeruginosa) (mallei) (pseudomallei) as the cause of diseases classified elsewhere; Z99.2 Dependence on renal dialysis; Z79.899 Other long term (current) drug therapy; Z88.8 Allergy status to other drugs, medicaments and biological substances; Q86.0 Fetal alcohol syndrome (dysmorphic); E79.0 Hyperuricemia without signs of inflammatory arthritis and tophaceous disease
CPT/HCPCS: 36415; 71045; 73560; 73700-TC; 73721; 80048; 80053; 82947; 83540; 83550; 83880; 84100; 84157; 84484; 84550; 85025; 85379; 85610; 85730; 86886; 86900; 86901; 86920; 87040; 87070; 87075; 87081; 87186; 87205; 88304; 89051; 89060; 90935; 90937; 93005; 93971; 97110-GP; 97116-GP; 97530-GP; 99285; G0378; J0690; J0692; J0696; J1170; J1644; J1956; J2001; J2250; J2405; J2704; J2765; J3010; J3370; J3490; J7030; J7060; P9021; Q5106